=== PATIENT | female | born 1960 | race Caucasian/White ===

== ENCOUNTER 2024-07-21 13:49 | Inpatient (IN) | payer MEDICARE ==
[~2024-07-21] VITALS: Ht 165.1 cm; Wt 45.4 kg
[2024-07-21 14:45] LABS: BASOPHILS # (AUTO) 0.1 K/UL (0.0-0.2); BASOPHILS % (AUTO) 1.1 % (0.0-2.0); EOSINOPHILS % (AUTO) 0.1 % (0.0-7.0); HEMATOCRIT 38.1 % (31.2-41.9); HEMOGLOBIN 12.8 g/dL (10.9-14.3); LYMPHOCYTES # (AUTO) 1.2 K/uL (0.8-4.8); LYMPHOCYTES % (AUTO) 17.3 % (20.5-51.5); MEAN CORPUSCULAR HGB CONC 34 g/dL (32.3-35.6); MEAN CORPUSCULAR VOLUME 95.5 fL (75.5-95.3); MONOCYTES # (AUTO) 0.3 K/uL (0.1-1.30); MONOCYTES % (AUTO) 4.6 % (0.0-11.0); NEUTROPHILS # (AUTO) 5.5 K/uL (1.8-8.9); NEUTROPHILS % (AUTO) 76.9 % (38.5-71.5); PLATELET COUNT (AUTO) 293 K/uL (179-408); RED BLOOD CELL COUNT(AUTO) 3.98 MIL/uL (3.63-4.92); RED CELL DISTRIBUTION WIDTH 13.9 % (12.3-17.7); WHITE BLOOD COUNT (AUTO) 7.1 K/uL (3.8-11.8)
[2024-07-21 14:57] LABS: DIFFERENTIAL COMMENT 1
[2024-07-21 15:01] LABS: ETHANOL < 3 MG/DL (0-10)
[2024-07-21 15:02] LABS: AMMONIA 17 umol/L (11-32)
[2024-07-21 15:10] LABS: *BILIRUBIN,URIN 2+ (NEGATIVE); *BLOOD, URINE NEGATIVE (NEGATIVE); *CLARITY,URINE CLEAR (CLEAR); *COLOR,URINE YELLOW (YELLOW); *KETONES,URINE 3+ (NEGATIVE); *PROTEIN,URINE 2+ (NEGATIVE); *UROBILINOGEN,URINE 0.2 E.U./dl (NORMAL); LEUKOCYTE ESTERASE ,URINE NEGATIVE (NEGATIVE); NITRITE, URINE NEGATIVE (NEGATIVE); UGLUCOSE NEGATIVE (NEGATIVE)
[2024-07-21 15:14] LABS: CALCIUM 8.2 mg/dL (8.5-10.1); CARBON DIOXIDE 23 mmol/L (21-32); CHLORIDE 107 mmol/L (98-107); CREATININE 0.6 mg/dL (0.6-1.3); GLUCOSE 126 mg/dL (74-106); POTASSIUM 3.9 mmol/L (3.5-5.1); SODIUM SERUM 143 mmol/L (136-145); UREA NITROGEN, BLOOD 12 mg/dL (7-18)
[2024-07-21 15:18] LABS: ALANINE AMINOTRANSFERASE 21 U/L (14-59); ALBUMIN 3.5 g/dL (3.4-5.0); ALKALINE PHOSPHATASE 109 U/L (50-136); ASPARTATE AMINOTRANSFERASE 23 U/L (15-37); BILIRUBIN,DIRECT 0.1 mg/dL (0.0-0.2); BILIRUBIN,TOTAL 0.4 mg/dL (0.2-1.0); TOTAL PROTEIN, SERUM 6.8 g/dL (6.4-8.2)
[2024-07-21 15:22] LABS: ACETAMINOPHEN < 2.0 ug/mL (10-30)
[2024-07-21 15:26] LABS: *AMPHETAMINE, URINE NEGATIVE (NEGATIVE); *BARBITURATE, URINE NEGATIVE (NEGATIVE); *BENZODIAZEPINE, URINE POSITIVE (NEGATIVE); *CANNABINOID, URINE POSITIVE (NEGATIVE); *COCCAINE, URINE NEGATIVE (NEGATIVE); *OPIATE, URINE POSITIVE (NEGATIVE); *PHENCYCLIDINE SCREEN,URINE NEGATIVE (NEGATIVE); FENTANYL, URINE NEGATIVE (NEGATIVE)
[2024-07-21 15:39] LABS: BACTERIA,URINE FEW /HPF (NONE SEEN); RBC,URINE 0-3 /HPF (0-3); SQUAMOUS EPITHELIAL CELL,UR MODERATE /HPF (NONE SEEN); WBC,URINE 0-3 /HPF (0-3)
[2024-07-21] MEDS ORDERED: HYDROMORPHONE 1 MG/1 ML DISP.SYRIN IV ONE (16:00)
[2024-07-21] MEDS ORDERED: ONDANSETRON 4 MG/2 ML VIAL IV ONE (16:00)
[2024-07-21] MEDS ORDERED: HYDROMORPHONE 1 MG/1 ML DISP.SYRIN ONE (16:26)
[2024-07-21] MEDS ORDERED: ONDANSETRON 4 MG/2 ML VIAL ONE (16:26)
[2024-07-21] MEDS: ONDANSETRON 4 MG/2 ML VIAL IM ONE (16:33)
[2024-07-21] MEDS: HYDROMORPHONE 1 MG/1 ML DISP.SYRIN IM ONE (16:33)
[2024-07-21] MEDS ORDERED: HYDROCODONE/APAP 10-325 MG TABLET PO PRN (18:30)
[2024-07-21] MEDS ORDERED: ZOLPIDEM 5 MG TABLET PO PRN (21:45)
[2024-07-21] MEDS ORDERED: LORAZEPAM 1 MG TABLET PO PRN ×2 (21:45)
[2024-07-21] MEDS ORDERED: MAG HYDROX/AL HYDROX/SIMETH 30 ML LIQUID UDC PO PRN (21:45)
[2024-07-21] MEDS ORDERED: MAGNESIUM HYDROXIDE 30 ML LIQUID UDC PO PRN (21:45)
[2024-07-21 22:15] VITALS: BP 136/76; TEMP 97.9; O2SAT 99
[2024-07-21] MEDS: BLOOD SUGAR DIAGNOSTIC 1 EACH STRIP VI ONE (22:21)
[2024-07-21] MEDS: ZOLPIDEM 5 MG TABLET PO PRN (22:24)
[2024-07-22 08:55] VITALS: BP 126/51; TEMP 98; O2SAT 98
[2024-07-22] MEDS: NICOTINE 7 MG/24HR PATCH TD SCH (09:00)
[2024-07-22] MEDS ORDERED: HYDROCODONE/APAP 10-325 MG TABLET PO PRN (09:15)
[2024-07-22] MEDS: DULOXETINE 30 MG CAPSULE.DR PO SCH (09:31)
[2024-07-22] MEDS: MORPHINE SULFATE SR 15 MG TABLET.SA PO SCH (12:27)
[2024-07-22] MEDS ORDERED: ASPI-869 PO (13:18)
[2024-07-22] MEDS ORDERED: LEVE500T9 PO (13:18)
[2024-07-22] MEDS ORDERED: CARI350T PO (13:18)
[2024-07-22] MEDS ORDERED: KETO10TA2 PO (13:18)
[2024-07-22] MEDS ORDERED: CLOP75TA15 PO (13:18)
[2024-07-22] MEDS ORDERED: BISA-79 PO (13:18)
[2024-07-22] MEDS ORDERED: LACT10SO58 PO (13:18)
[2024-07-22] MEDS ORDERED: DIAZ5TAB4 PO (13:18)
[2024-07-22] MEDS ORDERED: FAMO20TA8 PO (13:18)
[2024-07-22] MEDS ORDERED: ATOR20TA PO (13:18)
[2024-07-22] MEDS ORDERED: DULO30CA2 PO (13:18)
[2024-07-22] MEDS ORDERED: GABA300C PO (13:18)
[2024-07-22] MEDS ORDERED: ALEN70TA3 PO (13:18)
[2024-07-22] MEDS ORDERED: BUPR1TAB45 SL (13:18)
[2024-07-22] MEDS ORDERED: AMIN30LI66 PO (13:34)
[2024-07-22] MEDS ORDERED: TRAM50TA2 PO (13:34)
[2024-07-22] MEDS ORDERED: LIDO30AD10 TD (13:34)
[2024-07-22] MEDS ORDERED: MORP15TA7 PO (13:34)
[2024-07-22] MEDS ORDERED: ERGO500040 PO (13:34)
[2024-07-22] MEDS ORDERED: PREG50CA PO (13:34)
[2024-07-22] MEDS ORDERED: MULT-225 PO (13:34)
[2024-07-22] MEDS ORDERED: TEMA30CA PO (13:34)
[2024-07-22] MEDS ORDERED: ACET-2605 PO (13:34)
[2024-07-22 15:08] VITALS: BP 116/90; TEMP 98; O2SAT 98
[2024-07-22] MEDS ORDERED: PROTEIN HYDROLYS PO SCH (17:00)
[2024-07-22] MEDS ORDERED: MORPHINE SULFATE SR 15 MG TABLET.SA PO SCH (17:00)
[2024-07-22] MEDS ORDERED: AMINO ACIDS PO SCH (17:00)
[2024-07-22] MEDS: levETIRAcetam 500 MG TABLET PO SCH (17:58)
[2024-07-22] MEDS: CARISOPRODOL 350 MG TABLET PO SCH (17:58)
[2024-07-22] MEDS: GABAPENTIN 400 MG CAPSULE PO SCH (17:58)
[2024-07-22] MEDS: LACTULOSE 20 G/30 ML LIQUID UDC PO SCH (17:58)
[2024-07-22 20:20] VITALS: BP 126/57; TEMP 98; O2SAT 99
[2024-07-22] MEDS: ATORVASTATIN 20 MG TABLET PO SCH (21:36)
[2024-07-22] MEDS ORDERED: AMOXICILLIN-CLAVUL 875-125MG TABLET ONE (22:15)
[2024-07-22] MEDS: AMOXICILLIN-CLAVUL 875-125MG TABLET PO SCH (22:18)
[2024-07-22] MEDS: TEMAZEPAM 7.5 MG CAPSULE PO PRN (22:20)
[2024-07-23 08:04] VITALS: BP 106/54; TEMP 98.1; O2SAT 100
[2024-07-23] MEDS: BISACODYL 5 MG TABLET.DR PO SCH (09:15)
[2024-07-23] MEDS: LIDOCAINE 5% PATCH TD SCH (09:15)
[2024-07-23] MEDS: FAMOTIDINE 20 MG TABLET PO SCH (09:16)
[2024-07-23] MEDS: MULTIVIT, IRON, MIN NO. 8, FA TABLET PO SCH (09:16)
[2024-07-23] MEDS: CLOPIDOGREL 75 MG TABLET PO SCH (09:16)
[2024-07-23] MEDS: ASPIRIN EC 325 MG TABLET.DR PO SCH (09:30)
[2024-07-23] MEDS: PROTEIN SUPPLEMENT (PROSTAT) 30 ML LIQUID PO SCH (09:32)
[2024-07-23 16:04] VITALS: BP 122/61; TEMP 97.8; O2SAT 100
[2024-07-23] MEDS: LORAZEPAM 1 MG TABLET PO PRN (16:05)
[2024-07-23 20:00] VITALS: BP 94/59; TEMP 98; O2SAT 96
[2024-07-24] MEDS: ACETAMINOPHEN 325 MG TABLET PO PRN (05:27)
[2024-07-24 08:03] VITALS: BP 103/51; TEMP 98; O2SAT 97
[2024-07-24] MEDS: KETOROLAC TROMETHAMINE 10 MG TABLET PO SCH (08:57)
[2024-07-24 16:08] VITALS: BP 117/66; TEMP 97.6; O2SAT 100
[2024-07-24 19:42] VITALS: BP 124/78; TEMP 98.1; O2SAT 96
[2024-07-25] MEDS ORDERED: CARISOPRODOL 350 MG TABLET ONE ×2 (00:24→06:18)
[2024-07-25 08:10] VITALS: BP 111/65; TEMP 98; O2SAT 100
[2024-07-25 15:27] VITALS: BP 110/65; TEMP 98; O2SAT 100
[2024-07-25 20:00] VITALS: BP 112/60; TEMP 98; O2SAT 96
[2024-07-26] MEDS: ALENDRONATE SODIUM 70 MG TABLET PO SCH (06:08)
[2024-07-26 07:48] VITALS: BP 110/45; TEMP 98; O2SAT 99
[2024-07-26 15:35] VITALS: BP 116/59; TEMP 98; O2SAT 99
[2024-07-27 08:06] VITALS: BP 131/45; TEMP 98.6; O2SAT 100
[2024-07-27] MEDS: ERGOCALCIFEROL 50,000 UNIT CAPSULE PO SCH (08:46)
== END 2024-07-27 15:45 | DRG 951 ==
LOC: ER 13:49 → GPS 21:39
PROVIDERS: ADMIT Psychiatry & Neurology Psychiatry; ATTEND Nurse Practitioner Acute Care
DX: Z86.59 Personal history of other mental and behavioral disorders (principal); E43 Unspecified severe protein-calorie malnutrition; G92.8 Other toxic encephalopathy; J15.69 Pneumonia due to other Gram-negative bacteria; F33.2 Major depressive disorder, recurrent severe without psychotic features; S42.031K Displaced fracture of lateral end of right clavicle, subsequent encounter for fracture with nonunion; R64 Cachexia; Z68.1 Body mass index [BMI] 19.9 or less, adult; N39.0 Urinary tract infection, site not specified; J44.0 Chronic obstructive pulmonary disease with (acute) lower respiratory infection; F19.20 Other psychoactive substance dependence, uncomplicated; F03.918 Unspecified dementia, unspecified severity, with other behavioral disturbance; G40.909 Epilepsy, unspecified, not intractable, without status epilepticus; Z89.022 Acquired absence of left finger(s); G89.4 Chronic pain syndrome; X58.XXXD Exposure to other specified factors, subsequent encounter; G51.0 Bell's palsy; Z86.73 Personal history of transient ischemic attack (TIA), and cerebral infarction without residual deficits; Z79.83 Long term (current) use of bisphosphonates; F41.9 Anxiety disorder, unspecified; E78.5 Hyperlipidemia, unspecified; M81.0 Age-related osteoporosis without current pathological fracture; M54.50 Low back pain, unspecified; M15.9 Polyosteoarthritis, unspecified; I10 Essential (primary) hypertension; B96.20 Unspecified Escherichia coli [E. coli] as the cause of diseases classified elsewhere; Z96.642 Presence of left artificial hip joint; Z79.02 Long term (current) use of antithrombotics/antiplatelets
CPT/HCPCS: 36415; 70450; 71045; 83605; 84484; 85025; 85730; 87040; A4606; A4663; A9150; G0480; J1171; J2405; J8499